=== PATIENT | male | born 2000 | race Caucasian/White ===

== ENCOUNTER 2022-06-18 14:09 | Emergency (ER) | payer SELFPAY ==
[~2022-06-18] VITALS: Ht 157.5 cm; Wt 53.5 kg
[2022-06-18 14:35] VITALS: BP 128/105
[2022-06-18 15:47] VITALS: BP 115/62
[2022-06-18] MEDS ORDERED: IBUPROFEN 600 MG TAB PO ONE (15:50)
--- NOTE | 2022-06-18 16:31 | NUR ---
21 Y/O MALE BIB SISTER C/O RIGHT FOOT PAIN X2 WEEKS S/P TIRE FELL ON FOOT, DENIES ANY NUMBNESS OR TINGLING ON THE AFFECTED EXTREMITY, NO SWELLING NOTED, FULL ROM NKA PMH: ASTHMA
[2022-06-18] MEDS ORDERED: IBUP-2213 PO (17:34)
--- NOTE | 2022-06-18 17:45 | NUR ---
ATTEMPTED TO D/C PT. NOT FOUND IN LOBBY/OUTSIDE
--- NOTE | 2022-06-18 17:54 | NUR ---
Laquita luke in ED - 06/18/22 at 1756 by CHUCKIE R FOOT GAS[employer]., + CMS. PT TAUGHT HOW TO USE CRUTCHES AND RETURNED SAFE DEMONSTRATION.
--- NOTE | 2022-06-18 17:55 | NUR ---
PT LEFT WITHOUT D/C PAPERS. Addendum: 06/18/22 at 1801 by [email or web address] LEFT WITH GASPER WRAP/CRUTCHES
== END 2022-06-18 17:15 | disposition home or self-care (01) ==
LOC: MED 14:09
DX: S90.31XA Contusion of right foot, initial encounter (principal); J45.909 Unspecified asthma, uncomplicated; F17.200 Nicotine dependence, unspecified, uncomplicated; W22.8XXA Striking against or struck by other objects, initial encounter; Y93.89 Activity, other specified; Y92.89 Other specified places as the place of occurrence of the external cause; Y99.8 Other external cause status
CPT/HCPCS: 73630; 99283

== ENCOUNTER 2023-11-06 01:10 | Emergency (ER) | payer MEDICAID ==
[~2023-11-06] VITALS: Ht 157.5 cm; Wt 65.8 kg
[~2023-11-06 01:10] MED LIST: IBUP-2213 PO
[2023-11-06 01:15] VITALS: BP 125/70; PULSE 96; RESP 16; O2SAT 100
== END 2023-11-06 01:17 | disposition left against medical advice (07) ==
LOC: MED 01:10
DX: R05.9 Cough, unspecified (principal); Z53.21 Procedure and treatment not carried out due to patient leaving prior to being seen by health care provider